=== PATIENT | male | born 1955 | race Hispanic/Latino ===

== ENCOUNTER 2018-01-31 06:08 | Emergency (ER) | payer OTHER ==
[2018-01-31 07:04] LABS: #Lymphocytes 0.5 thou/uL (1.20-3.40); #Monocytes 0.3 thou/uL (0.11-0.59); #Neutrophils 10.9 thou/uL (1.40-6.50); %Basophils 0.1 % (0.0-1.0); %Eosinophils 0.2 % (0.0-10.0); %Lymphocytes 4.1 % (21.0-51.0); %Monocytes 2.7 % (0.0-10.0); %Neutrophils 92.9 % (42.0-75.0); Hemoglobin 15.7 g/dL (14.0-18.0); Mean Corpuscular HGB CONC 33.9 g/dL (32.0-36.0); Mean Corpuscular Hemoglobin 30.9 pg (27.0-31.0); Mean Corpuscular Volume 91.1 fL (78.0-98.0); Mean Platelet Volume 7.5 fL (7.4-10.4); Platelet Count 216 thou/uL (130-400); RBC Distribution Width 11.5 % (11.5-14.5); Red Blood Cell (RBC) Count 5.09 mill/uL (4.70-6.10); White Blood Cell (WBC) Count 11.7 thou/uL (4.8-10.8)
[2018-01-31 07:27] LABS: ALT (SGPT) 19 U/L (8-55); AST (SGOT) 21 U/L (5-34); Alkaline Phosphatase 77 U/L (40-150); Anion Gap 15 mmol/L (10-20); BUN (Urea Nitrogen) 19 mg/dL (8.4-25.7); Bilirubin, Total 1.8 mg/dL (0.2-1.2); Calc. Creatinine Clearance 0 mL/min (70-130); Calcium 9.8 mg/dL (7.8-10.44); Carbon Dioxide 22 mmol/L (23-31); Chloride 105 mmol/L (98-107); Estimated GFR-MDRD 81; Globulin 3.1 g/dL (2.4-3.5); Glucose 123 mg/dL (80-115); Lipase 21 U/L (8-78); Protein, Total 8.1 g/dL (5.8-8.1); Sodium 138 mmol/L (136-145)
[2018-01-31 07:31] LABS: CKMB 1.6 ng/mL (0-6.6); Troponin I Less than 0.010 ng/mL (< 0.028)
[2018-01-31] MEDS ORDERED: Dicyclomine 20 MG TAB ONE (08:29)
[2018-01-31 09:16] LABS: Bilirubin Negative (Negative); Blood, Urine Negative (Negative); Clarity CLEAR (Clear); Glucose, Urine (Dipstick) Negative (Negative); Leukocyte Negative (Negative); Nitrite Negative (Negative); Protein, Urine (Dipstick) Negative (Neg-Trace); Specific Gravity, Urine 1.027 (1.002-1.036); pH, Urine 6.5 (5.0-9.0)
[2018-01-31] MEDS ORDERED: Pantoprazole 40 MG VIAL ONE (09:54)
--- NOTE | 2018-01-31 10:22 | CT ---
ABDOMEN AND PELVIC CT SCAN WITH IV CONTRAST: History: 62-year-old male with history of abdominal pain. FINDINGS: The lung bases are clear. The liver, pancreas, spleen, adrenal glands are unremarkable. There are tete e gallstones in the dependent portion of the gallbladder without evidence for gallbladder wall thicke edgard or pericholecystic fluid or fat stranding. The cecum is in the right upper quadrant as well as t he appendix, which is in fairly close proximity to the edge of the right lobe of the liver as well as the gallbladder. The appendix is borderline dilated measuring approximately 0.7 cm and contains most ly fluid but some air within it without evidence for periappendiceal abnormal fat stranding. I do not think that this represents frances acute appendicitis but is equivocal for the possibility of very min imal or early appendicitis. There are some borderline sized small bowel loops with some fluid within them, nonspecifically, possible related to some ileus or nonspecific enteritis. Small fat containing right inguinal hernia. IMPRESSION: Somewhat equivocal appearing appendix which is in the right upper quadrant and is adjacent to the rig ht lobe of the liver as well as the gallbladder. No evidence of significant abnormal fat stranding. T he appendix is borderline in diameter and does contain some fluid and some gas with what may be some very slight wall thickening at the cecal apex/appendix junction. Findings were discussed with Dr. Subha dominguez in the Emergency Department at 9:00 a.m. Given the patient's laboratory findings, suggest that this patient be evaluated by surgery and at a minimum, careful short term clinical and laboratory fol low up would be suggested if the patient does not have surgery to address this. Multiple cholelithias is in the dependent portion of the gallbladder without gallbladder wall thickening or pericholecystic fluid. Small right inguinal fat containing hernia. Some fluid within nondilated small bowel, possibl e nonspecific ileus or enteritis. Code CR POS: [facility]
[2018-01-31] MEDS ORDERED: Lidocaine Viscous Sol 2% 15 ml UD Cup ONE (10:59)
[2018-01-31] MEDS ORDERED: Mag-Al 1200 mg/1200 mg/30 ML UDCUP ONE (10:59)
[2018-01-31] MEDS ORDERED: Ondansetron HCl/PF 4 MG/2 ML Vial ONE (10:59)
[2018-01-31] MEDS ORDERED: ISOVUE-370 76%-LOCM 1 ML ONE (11:06)
== END 2018-01-31 11:43 | disposition home or self-care (01) ==
LOC: ERS 06:08
DX: R10.9 Unspecified abdominal pain (principal); I10 Essential (primary) hypertension; E78.5 Hyperlipidemia, unspecified; Z79.82 Long term (current) use of aspirin; Z79.899 Other long term (current) drug therapy
CPT/HCPCS: 36415; 74177; 80053; 81003; 82553; 83690; 84484; 85025; 87086; 93005; 96361; 96374; 96375; C9113; J2405